=== PATIENT | male | born 1970 | race Caucasian/White ===

== ENCOUNTER 2019-05-11 18:37 | Inpatient (IN) ==
[2019-05-11] MEDS ORDERED: ASPIRIN PO ONE (18:50)
--- NOTE | 2019-05-11 19:13 | Diag Imaging Result Doc PS360 ---
EXAM: CHEST-2 VIEWS 05/11/2019 HISTORY: cp TECHNIQUE: PA and lateral chest COMMENT: There is no evidence of acute cardiac or pulmonary disease. Compared to 03/28/2016 there has been no significant change in the appearance of the chest. IMPRESSION: Stable chest. Electronically signed by Jc Yanes 05/11/2019 7:11 PM
[2019-05-11 19:20] LABS: BASO# 0.06 X1000 (0.0-0.2); BASO% 0.7 % (0.0-0.8); EOS# 0.27 X1000 (0.0-0.7); EOS% 3.3 % (0.0-10.0); HEMATOCRIT 50.6 % (42.0-52.0); HEMOGLOBIN 16.2 g/dL (14.0-18.0); LYMPH# 2.72 X1000 (1.2-3.4); LYMPH% 33.3 % (20.5-51.1); MCH 29.7 PG (27-31); MCV 92.8 FL (81-99); MONO# 0.71 X1000 (0.11-0.59); MONO% 8.7 % (1.7-9.3); MPV 10.5 FL (7.4-10.4); NEUT# 4.41 X1000 (1.4-6.5); PLT 215 X1000 (130-400); RBC 5.45 XMIL (4.7-6.1); RDW 13.1 % (11.5-14.5); WBC 8.17 X1000 (4.8-10.8)
[2019-05-11 19:27] LABS: INR 0.96; PROTIME 12.9 Seconds (11.0-16.0)
[2019-05-11 19:28] LABS: PTT 29.4 Seconds (22.3-41.8)
[2019-05-11 19:40] LABS: AGAP 9; ALB/GLOB RATIO 1.4; ALBUMIN 4.1 g/dL (3.5-5.0); ALKALINE PHOSPHATASE 108 U/L (32-122); BUN 13 mg/dL (8-22); CHLORIDE 101 mmol/L (98-107); CK PROFILE 63 U/L (24-204); COSMO 283; ESTIMATED GFR > 60; GLUCOSE 134 mg/dL (70-104); GOT 19 U/L (10-34); GPT 25 U/L (10-44); SODIUM 141 mmol/L (136-145); TCO2 31 mmol/L (25-35); TOTAL BILIRUBIN 0.37 mg/dL (0.20-1.00); TOTAL PROTEIN 7.1 g/dL (6.3-8.3)
--- NOTE | 2019-05-11 20:36 | EKG Report ---
Test Performed on : 05/11/2019 6:45:28 PM Test Reason : cp Blood Pressure : / mmHG Vent. Rate : 097 BPM Atrial Rate : 097 BPM P-R Int : 116 ms QRS Dur : 090 ms QT Int : 356 ms P-R-T Axes : 034 -21 087 degrees QTc Int : 452 ms Normal sinus rhythm. Septal infarct , age undetermined Abnormal ECG When compared with ECG of 28-MAR-2016 21:03, Septal infarct is now present Nonspecific T wave abnormality now evident in Lateral leads Unconfirmed Result
[2019-05-11] MEDS ORDERED: NICODERM PATCH TD ONE (22:31)
--- NOTE | 2019-05-11 22:31 | PROVIDER DOCUMENTATION ---
This chart was entered by Ashlyn Davidson Scribe, acting as scribe for Pj Isaac MD. HPI-Chest Pain - General Chief Complaint: Chest Pain Stated Complaint: CHEST PAIN/SOB/ARM PAIN/HISTORY OF HEART PROBLEMS Time Seen by Provider: 05/11/19 19:31 Source: patient Allergies/Adverse Reactions: Patient Allergies Allergy/AdvReac Type Severity Reaction Status Date / Time No Known Allergies Allergy Verified 06/28/16 19:47 Home Medications: Home Medication List Medication Instructions Recorded Confirmed Last Taken Type Cephalexin [Keflex] 500 mg PO Q6H 7 Days #28 cap 02/25/18 Unknown Rx Hydrocodone/APAP 7.5 mg/325 mg 1 ea PO Q6H PRN PRN #20 tab 02/25/18 Unknown Rx [[place]-7.5] Silver Sulfadiazine [Silvadene] 20 gm TP BID #1 cream..g. 02/25/18 Unknown Rx - History of Present Illness-CP Nature of Presenting Problem: pt is a 48 yr old male presenting with onset of sharp/stabbing chest pain 1 hour [employer], admits shortness of breath, no radiation, hx of [place] and stent placement Location: reports: substernal Chest Pain Radiation: reports: no radiation Quality of Pain: reports: sharp, stabbing Severity in ED: mild Onset/Duration: abrupt, 1-3 hours ago Timing: improving Context/Activities at Onset: reports: light activity Modifying Factors: improves with: nothing Associated Symptoms: reports: shortness of breath. denies: diaphoresis, nausea, vomiting Nitro Today/Relief: no nitro taken today Aspirin Treatment Today: no aspirin today Similar Symptoms Previously?: Yes Recently Seen Here or By Another Healthcare Provider: No Review of Systems - Adult - REVIEW OF SYSTEMS - ADULT Constitutional: denies: chills, fever Eyes: reports: no symptoms reported Ears, Nose, Mouth & Throat: reports: no symptoms reported Cardiovascular: reports: chest pain, orthopnea. denies: palpitations, syncope Respiratory: reports: shortness of breath. denies: cough Gastrointestinal: denies: abdominal pain, nausea, vomiting Genitourinary: reports: frequency Musculoskeletal: reports: no symptoms reported Integumentary: reports: no symptoms reported Neurological: denies: dizziness/vertigo, headache/migraines Psychiatric: reports: no symptoms reported Endocrine: reports: no symptoms reported Hematologic/Lymphatic: reports: no symptoms reported Allergic/Immunologic: reports: no symptoms reported All Other Systems: Reviewed and Negative Past History - Adult - PAST MEDICAL HISTORY-ADULT Review of Records: reports: Old Records Reviewed, Nursing Assessment Review, Medications Reviewed, Social history reviewed & non-contributory. Major Childhood Illnesses: reports: denies history Cardiovascular: reports: HTN, [place] Respiratory: reports: asthma Gastrointestinal: reports: GERD Obstetrical/Gynecological: reports: denies history Genitourinary: reports: denies history Musculoskeletal: reports: denies history Neurological: reports: denies history Psychiatric: reports: anxiety Endocrine/Immune: reports: denies history Other Conditions: reports: denies history - PRIOR SURGERIES/PROCEDURES Surgical/Procedure History: reports: cardiac stent - IMMUNIZATION STATUS Childhood Immunizations: See Nurse Assessment Flu Vaccine: See Nurse Assessment - FAMILY HISTORY Family History: reviewed, not pertinent - SOCIAL HISTORY Smoking: cigarettes Substance Use: alcohol Alcohol Use Frequency: occasionally Living Situation: family Physical Exam-General - PHYSICAL EXAM-ADULT Initial Vital Signs Reviewed: Yes - CONSTITUTIONAL General Appearance: appears well, alert, no apparent distress, obese - EYES Eyes: PERRL/EOMI - HEAD, EARS, NOSE, MOUTH & THROAT HENMT: normocephalic/atraumatic, moist mucous membranes, normal ENT inspection - NECK Neck: non-tender, full range of motion, supple, normal inspection - RESPIRATORY Respiratory: chest non-tender, lungs clear, normal breath sounds, no respiratory distress, no accessory muscle use - CARDIOVASCULAR Cardiovascular: normal peripheral pulses, regular rate, rhythm, no edema - GASTROINTESTINAL (ABDOMEN) Abdominal Exam: normal bowel sounds, non tender, soft - LYMPHATIC Lymphatic: no adenopathy - MUSCULOSKELETAL Back Exam: normal inspection, no CVA tenderness, no vertebral tenderness Extremity: normal range of motion, non-tender, normal gait, normal inspection - SKIN Integumentary: normal color, normal turgor, warm/dry - NEUROLOGIC Neurologic: grossly normal, no motor/sensory deficits - PSYCHIATRIC Psych/Mental Status: normal mood/affect - HEART Score HEART Score: History: Moderately Suspicious HEART Score: ECG: Non-Specific Repolarization Disturbance/LBBB/PM HEART Score: Age: 45-65 Years HEART Score: Risk Factors for Atherosclerotic Disease: > or = 3 Risk Factors or History of Atherosclerotic Disease HEART Score: Troponin: < or = Normal Limit Total HEART Score:: 5 Progress - PLAN OF CARE/RESULTS Progress/Plan/Lab Results: Vital Signs - 8 hr 05/11/19 18:44 Temperature 97.8 F Pulse Rate 94 H Respiratory Rate 19 Blood Pressure 191/107 O2 Sat by Pulse Oximetry 93 L Laboratory Results - last 24 hr 05/11/19 05/11/19 05/11/19 19:00 19:00 19:00 WBC RBC Hgb Hct MCV MCH MCHC RDW Std Deviation Plt Count MPV Immature Gran % (Auto) Neut % (Auto) Lymph % (Auto) [place] % (Auto) Eos % (Auto) Baso % (Auto) Immature Gran # (Auto) Neut # (Auto) Lymph # (Auto) [place] # (Auto) Eos # (Auto) Baso # (Auto) PT INR PTT (Actin FS) D-Dimer, Quantitative Sodium 141 Potassium 5.0 Chloride 101 Carbon Dioxide 31 Anion Gap 9 BUN 13 Creatinine 1.0 Estimated GFR/1.73 m2 > 60 BUN/Creatinine Ratio 13 Glucose 134 H Calculated Osmolality 283 Calcium 9.0 Total Bilirubin 0.37 AST 19 ALT 25 Alkaline Phosphatase 108 Creatine Kinase 63 Troponin T High Sens Ijf-T-Fwhcnjncfvl Pept 295 H Total Protein 7.1 Albumin 4.1 Globulin 3.0 Albumin/Globulin Ratio 1.4 Plasma Lactate 1.2 05/11/19 05/11/19 05/11/19 19:00 19:00 19:00 WBC 8.17 RBC 5.45 Hgb 16.2 Hct 50.6 MCV 92.8 MCH 29.7 MCHC 32.0 L RDW Std Deviation 13.1 Plt Count 215 MPV 10.5 H Immature Gran % (Auto) 0.0 Neut % (Auto) 54.0 Lymph % (Auto) 33.3 [place] % (Auto) 8.7 Eos % (Auto) 3.3 Baso % (Auto) 0.7 Immature Gran # (Auto) 0.00 Neut # (Auto) 4.41 Lymph # (Auto) 2.72 [place] # (Auto) 0.71 H Eos # (Auto) 0.27 Baso # (Auto) 0.06 PT 12.9 INR 0.96 PTT (Actin FS) 29.4 D-Dimer, Quantitative Sodium Potassium Chloride Carbon Dioxide Anion Gap BUN Creatinine Estimated GFR/1.73 m2 BUN/Creatinine Ratio Glucose Calculated Osmolality Calcium Total Bilirubin AST ALT Alkaline Phosphatase Creatine Kinase Troponin T High Sens 24 H Uqr-D-Hluupwvcvee Pept Total Protein Albumin Globulin Albumin/Globulin Ratio Plasma Lactate 05/11/19 05/11/19 19:00 21:50 WBC RBC Hgb Hct MCV MCH MCHC RDW Std Deviation Plt Count MPV Immature Gran % (Auto) Neut % (Auto) Lymph % (Auto) [place] % (Auto) Eos % (Auto) Baso % (Auto) Immature Gran # (Auto) Neut # (Auto) Lymph # (Auto) [place] # (Auto) Eos # (Auto) Baso # (Auto) PT INR PTT (Actin FS) D-Dimer, Quantitative 0.31 Sodium Potassium Chloride Carbon Dioxide Anion Gap BUN Creatinine Estimated GFR/1.73 m2 BUN/Creatinine Ratio Glucose Calculated Osmolality Calcium Total Bilirubin AST ALT Alkaline Phosphatase Creatine Kinase Troponin T High Sens Kts-B-Pezfohcrrsj Pept Total Protein Albumin Globulin Albumin/Globulin Ratio Plasma Lactate 0.8 Orders Category Date Time Status Cardiac Monitoring DIRECTED Care 05/11/19 18:50 Active NEWS Score 2-4:Order NEWS Lactate Series NOW Care 05/11/19 18:48 Active Oxygen Therapy- ED Nursing DIRECTED Care 05/11/19 18:50 Active Saline Loc NOW Care 05/11/19 18:50 Active CHEST-2 VIEWS [RAD] Stat Exams 05/11/19 18:50 Completed CBC WITH ELECTRONIC DIFF [HEME] Stat Lab 05/11/19 19:00 Completed CK PROFILE [SP CHEM] Stat Lab 05/11/19 19:00 Completed COMPREHENSIVE METABOLIC PANEL [CHEM] Stat Lab 05/11/19 19:00 Completed D-DIMER [COAG] Stat Lab 05/11/19 19:00 Completed LACTATE, PLASMA [CHEM] Lab 05/11/19 21:50 Completed LACTATE, PLASMA [CHEM] Lab 05/12/19 01:00 Uncollected LACTATE, PLASMA [CHEM] Q3H Lab 05/11/19 19:00 Completed PRO B-NATRIURETIC PEPTIDE Stat Lab 05/11/19 19:00 Completed PROTIME WITH INR [COAG] Stat Lab 05/11/19 19:00 Completed PTT [COAG] Stat Lab 05/11/19 19:00 Completed TROPONIN T HIGH SENSITIVITY Stat Lab 05/11/19 19:00 Completed Aspirin Med 05/11/19 18:50 Discontinued 325 mg PO NOW ONE CP/SOB/Palp >45 yrs of Age Stat Oth 05/11/19 18:50 Ordered EKG [EKG] Stat Ther 05/11/19 18:50 Draft Result Diagrams: 05/11/19 19:00 05/11/19 19:00 - EKG 1 Time of EKG reading by physician:: 19:13 EKG Read and Signed by:: Pj Isaac EKG Interpretation (*Must complete 3 of following elements*): Abnormal (septal infarct-age undetermined) Rate: 97 Rhythm: nsr [place]: normal QRS: normal [place] Interval: normal - XRAY 1 XRAY Study: Chest Impression: Normal ( Signed EXAM: CHEST-2 VIEWS 05/11/2019 HISTORY: cp TECHNIQUE: PA and lateral chest COMMENT: There is no evidence of acute cardiac or pulmonary disease. Compared to 03/28/2016 there has been no significant change in the appearance of the chest. IMPRESSION: Stable chest. Electronically signed by Jc Yanes 05/11/2019 7:11 PM 05/11/19 191) - CONSULTS/PCP/HOSPITALIST Notification #1 *Consult/PCP/Hospitalist*: Dr Arauz Time Discussed: 22:20 Reason/Comments: discussed plan of care for pt admit Consult Disposition: Admit Departure - Departure Date of Disposition Decision: 05/11/19 Time of Disposition Decision: 22:22 DIAGNOSIS: Dependent edema, Smoker Chest pain Qualifiers: Chest pain type: unspecified Qualified Code(s): R07.9 - Chest pain, unspecified CAD (coronary artery disease) Qualifiers: Coronary Disease-Associated Artery/Lesion type: unspecified vessel or lesion type [place] vs. transplanted heart: [place] heart Associated angina: with unspecified angina Qualified Code(s): I25.119 - Atherosclerotic heart disease of [place] coronary artery with unspecified angina pectoris Disposition: ADMITTED INPATIENT 09 Certified Medical Emergency: Emergent Condition: Stable Referrals and Follow-Ups: None,PCP [Primary Care Provider] - - Critical Care Note This patient required my direct & personal management of CC.: No Attestation - Physician/ VERONA Attestation Patient care was provided by Advanced Practice Provider:: No The physician spent face to face time with patient:: Yes Advanced Practice Provider documentation review:: Supervising physician onsite and consulted in the evaluation and care of this patient. The physician did have a face to face encounter with the patient. This chart was documented by the indicated scribe, (Ashlyn Davidson, [employer]) and accurately reflects the services I performed and decisions made by me, Pj Isaac MD, as attested by the provider's signature.
[2019-05-11] MEDS ORDERED: ZOFRAN IV PRN (23:43)
[2019-05-11] MEDS ORDERED: TYLENOL PO PRN (23:43)
[2019-05-11] MEDS ORDERED: NITROGLYCERIN SL PRN (23:43)
[2019-05-12] MEDS ORDERED: LABETALOL IV ONE (00:17)
[2019-05-12] MEDS: LOVENOX SUBQ SCH ×2 (00:23→23:18)
[2019-05-12] MEDS ORDERED: LIPITOR PO ONE (01:04)
--- NOTE | 2019-05-12 01:59 | HISTORY AND PHYSICAL ---
CHIEF COMPLAINT: Chest pain. HPI: Mr. Pulliam is a 48-year-old male who comes into the emergency room with complaint of chest pain. Has a history of coronary artery disease, myocardial infarction x2, and cardiac stenting, hypertension, hyperlipidemia. He has not been compliant with his medications related to cough. He does not take any home medications at this time. Stated that the chest pain started around 4 p.m. today. It was a sharp, stabbing pain. Did not radiate. He did have shortness of breath with a lot of activity, and nothing made it better. His cardiac enzymes were unremarkable. His high-sensitivity troponin was 24, but related to his history of coronary artery disease he will be admitted in observation status. PAST MEDICAL HISTORY: See HPI. PREVIOUS SURGICAL HISTORY: Nasal surgery and cardiac stenting. FAMILY HISTORY: Positive for coronary artery disease and diabetes mellitus. 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 No drugs. Very rare alcohol. Smokes 1 pack of cigarettes per day. ALLERGIES: NO KNOWN DRUG ALLERGIES. HOME MEDICATIONS: No home medications. REVIEW OF SYSTEMS: A 14 point review of systems was conducted with the patient. Pertinent positives listed above in the HPI. All other systems reviewed and found to be negative. PHYSICAL EXAMINATION: VITAL SIGNS: Temperature 97.8, pulse 80, respirations 18, blood pressure 180/138, oxygen saturation 95% on 2L nasal cannula. GENERAL: Pleasant 48-year-old male lying on the ER stretcher. He is alert and oriented x3. Is in no acute distress. HEENT: Head is atraumatic, normocephalic. Pupils are equal, round, react to light. Extraocular eye movements intact. Sclera anicteric. Conjunctiva is pink. Oral mucosa is moist. NECK: Supple. No JVD. No thyromegaly. Trachea is midline. No cervical lymphadenopathy. CARDIAC: S1, S2 appreciated. No murmurs, gallops, rubs. LUNGS: Clear to auscultation bilaterally, with no rhonchi, wheezes, rales. Symmetric rise and fall of respirations. ABDOMEN: Soft, nondistended, nontender. Bowel sounds present all 4 quadrants. Normoactive. No pulsatile mass or organomegaly. EXTREMITIES: No clubbing, cyanosis or edema, 2+ pedal pulses bilaterally. GENITOURINARY: No bladder distention. Patient voids, otherwise deferred. NEUROLOGICAL: Alert and oriented x3. No focal motor deficits. Otherwise nonfocal examination. DIAGNOSTIC DATA: PA and lateral chest x-ray no acute disease. EKG normal sinus rhythm, rate of 97, nonspecific T-wave abnormality in lateral leads. LABORATORY DATA: CBC, coags, D-dimer and chemistry panel within normal limits other than a glucose of 134. Troponin is 24. ASSESSMENT: 1. Chest pain, rule out acute myocardial infarction. 2. Hypertension, untreated. 3. Hyperlipidemia. 4. Coronary artery disease with past history of myocardial infarction. PLAN: Admit patient to the medical floor. Consult Cardiology. Schedule stress test tomorrow. Will place a NicoDerm on the patient, start atorvastatin 40 mg p.o. daily, nitroglycerin as needed for chest pain, aspirin 81 mg daily. Will give labetalol p.r.n. At this time for hypertension the patient will need started on a daily regimen to be discharged on. Further recommendations based on patient's clinical course. Dictated by KRISTINE Zheng for Austin Arauz MD cc: KRISTINE Zheng MD [facility]
[2019-05-12] MEDS: PRILOSEC PO SCH (06:09)
[2019-05-12] MEDS: ASPIRIN PO SCH (08:17)
--- NOTE | 2019-05-12 08:27 | EKG Report ---
Test Performed on : 05/12/2019 06:11:12 AM Test Reason : cp Blood Pressure : / mmHG Vent. Rate : 083 BPM Atrial Rate : 083 BPM P-R Int : 138 ms QRS Dur : 086 ms QT Int : 366 ms P-R-T Axes : 036 -33 032 degrees QTc Int : 430 ms Normal sinus rhythm. Left axis deviation Septal infarct (cited on or before 11-MAY-2019) Inferior infarct , age undetermined Abnormal ECG When compared with ECG of 11-MAY-2019 18:45, (Unconfirmed) No significant change was found Confirmed by Johnathan Mancilla MD ([id number]) on 05/12/2019 7:28:42 PM
[2019-05-12] MEDS: LASIX IV SCH ×2 (11:15→20:39)
[2019-05-12] MEDS: CAPOTEN PO SCH ×3 (11:15→20:39)
--- NOTE | 2019-05-12 14:59 | PROGRESS NOTE ---
DATE: 05/12/2019 SUBJECTIVE: The patient has been evaluated by Cardiology Department. It looks like this patient will have a stress test done tomorrow. He has been placed n.p.o. after midnight. Cardiac enzymes are negative. PHYSICAL EXAMINATION: Vital Signs: Temperature 98.6 degrees, pulse 79, respiratory rate 24, blood pressure 143/83, oxygen saturation 96 on 2 L of nasal cannula. HEENT: Head normocephalic, no trauma. PERRLA. Neck: Neck is supple. No JVD. No masses. Central trachea. Chest: Clear to auscultation. No wheezing. No rales. Abdomen: Soft, nontender, nondistended. No hepatosplenomegaly. Extremities: No edema, no clubbing, no cyanosis. Neurological examination: The patient is awake. He is oriented x3. No focal deficits. LABORATORY: No lab work done today. Hemoglobin A1c is 6 and high sensitive troponins 20, triglyceride 130, cholesterol 132, LDL 99, HDL 24. Plasma lactate negative x3. ASSESSMENT AND PLAN: 1. Chest pain. This patient will have a stress test done tomorrow. Cardiology Department following this patient pending echocardiogram. 2. Hypertension. Continue with same management for now. 3. Hyperlipidemia. This patient has been placed on statin. 4. History of coronary artery disease with apparently myocardial infarction before, aware. cc: Gregory Fisher MD
--- NOTE | 2019-05-12 15:20 | CARDIOLOGY CONSULTATION ---
DATE: 05/12/2019 REASON FOR CONSULTATION: Chest discomfort, shortness of breath, edema. HISTORY: Mr. Regan is a 48-year-old male who carries a history of coronary heart disease. Apparently, the patient has not been under any kind of medical care for the past 3 years. He presented to the emergency room last night complaining of several weeks of not feeling well with some nonexertional chest discomfort that he describes as sharp, very short lasting, as well as progressive exertional dyspnea from moderate effort to mild effort lately associated with swelling of his lower extremities. On the day of admission, he had a bad episode of sharp chest discomfort that lasted longer than usual and at that time, he got scared and decided to come in. They did a chest x-ray that shows no infiltrates. A 12-lead electrocardiogram done in the emergency room showed sinus rhythm with septal scar and nonspecific T-wave changes in the lateral leads with the left anterior fascicular block. High sensitivity troponins have been checked. The first was 123 ng/L. The second was 24 ng/mL; those 2 were done yesterday. The one from today at 11:55 a.m. is 20 ng/L. Those are slightly elevated. ProBNP level is 295 pg/mL. The patient was given some initial medications including aspirin, labetalol for high blood pressure, and he is feeling somewhat better at this time. He is not having any more chest pain. Subsequent EKG shows again stable pattern at 6:11 a.m. with no acute ischemic changes. The T-wave abnormality in the limb leads 1 and aVL is less significant. PAST HISTORY: Positive for an acute myocardial infarction that took place in 2014. At that time, he was taken to [facility]. Dr. Sosa performed a heart catheterization finding a total occlusion of right coronary artery as well as lesions in the circumflex and the LAD. He proceeded to perform thrombectomy and stenting of the right coronary artery with a subtotal occlusion due to thrombosis of one large acute marginal branch. Unfortunately, the [place] and did not follow up with the [facility]. The patient has hypertension, hyperlipidemia. He has some COPD. SURGICAL HISTORY: He has had nasal surgery. SOCIAL HISTORY: He is single. 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 He has been a smoker of a pack of cigarettes a day for over 20 years. Not a drinker. He is . He has 2 daughters here in town. FAMILY HISTORY: His father had coronary disease. ALLERGIES: Negative. REVIEW OF SYSTEMS: Besides what I have described is noncontributory. HOME MEDICATIONS: Basically he was not taking any medication all. PHYSICAL EXAMINATION: Vital signs: Blood pressure 149/105, temperature 97.4 degrees, pulse 85, respirations 19. General: He is awake in no distress. HEENT: Normal. Chest: Sounds clear to auscultation and percussion. Heart: Sounds are regular rhythmic. I do not hear a gallop or murmur. Abdomen: Nontender. Extremities: Showed no edema. Neurological: Nonfocal. Moves 4 extremities. BLOOD WORK: Sodium 141, potassium 4.0, BUN 13, creatinine 1.0. Cholesterol 132, LDL 99, HDL 24, triglycerides 130. IMPRESSION: 1. Patient who presents with increasing dyspnea, swelling of the legs consistent with systolic heart failure. He has suffered a prior extensive inferior wall myocardial infarction in 2014. This was successfully treated with a stent.Question of recurrent GA. Question of CHF systolic,acute on chronic. 2. Angina pectoris functional class 3. The patient has been diagnosed with coronary heart disease. However, unfortunately, this is untreated. Patient has severe Atherosclerotic heart disease. 3. Medical noncompliance. 4. Tobacco user. 5. Obesity. BMI is 35.6. 6. Hyperlipidemia. His LDL cholesterol is 99, HDL is 24. RECOMMENDATIONS: We will go ahead and resume all of his medications including CARMEN inhibitors, low- dose aspirin, statins. I will get an echocardiogram and a myocardial perfusion stress test for further evaluation. Depending on the results, we will decide as to whether or not we treat him conservatively for a few months and then pursue invasive evaluation or we go ahead and obtain a heart catheterization on him. My personal preference will be to treat him medically for the time being because he has been not taking any medication at all for over 2 to 3 years. Further advice will be forthcoming. Thank you for the opportunity to participate in his evaluation. cc: MD IGLESIA Aggarwal
[2019-05-12] MEDS ORDERED: FLU VACCINE IM ONE (15:43)
[2019-05-13] MEDS: PRILOSEC PO SCH ×2 (05:43→07:25)
[2019-05-13] MEDS: CAPOTEN PO SCH ×4 (05:43→20:57)
--- NOTE | 2019-05-13 08:21 | EKG Report ---
Test Performed on : 05/13/2019 07:44:11 AM Test Reason : chest pain Blood Pressure : / mmHG Vent. Rate : 087 BPM Atrial Rate : 087 BPM P-R Int : 126 ms QRS Dur : 086 ms QT Int : 352 ms P-R-T Axes : 045 -40 087 degrees QTc Int : 423 ms Normal sinus rhythm. Left axis deviation Nonspecific T wave abnormality Abnormal ECG When compared with ECG of 12-MAY-2019 06:11, Criteria for Inferior infarct are no longer present Nonspecific T wave abnormality is new. Confirmed by Johnathan Mancilla MD ([id number]) on 05/13/2019 8:22:19 PM
[2019-05-13] MEDS ORDERED: LEXISCAN ONE (08:24)
[2019-05-13 08:27] LABS: AGAP 9; BUN 16 mg/dL (8-22); CALCIUM 9.5 mg/dL (8.8-10.2); CHLORIDE 95 mmol/L (98-107); CK PROFILE 62 U/L (24-204); COSMO 278; CREATININE 0.9 mg/dL (0.7-1.2); ESTIMATED GFR > 60; GLUCOSE 110 mg/dL (70-104); POTASSIUM 4.3 mmol/L (3.5-5.1); SODIUM 138 mmol/L (136-145); TCO2 34 mmol/L (25-35)
--- NOTE | 2019-05-13 09:10 | ECHO REPORT ---
ORDER DATE: 05/12/2019 MEASUREMENTS: Septal thickness 1.9, left ventricular internal diameter in diastole 3.7, posterior wall thickness 1.8, left ventricular internal diameter in systole 2.4, aortic root 3.5, left atrium 3.5. SUMMARY: 1. Technically difficult study due to limited acoustic window quality. Intravenous echo contrast agent, Optison, was utilized to enhance endocardial definition. 2. Aortic valve is trileaflet and opens normally on 2-dimensional images. The peak gradient across the aortic valve is less than 10 mmHg. Mitral and tricuspid valves are without evidence of structural abnormality, while pulmonic valve is not well demonstrated. There is mild mitral regurgitation and trace tricuspid regurgitation. The aortic root is normal in size. 3. Normal left ventricular chamber size with bcvguhzu-wu-hnodjs concentric left ventricular hypertrophy is suggested. The estimated left ventricular ejection fraction appears to be at least 65%. No regional wall motion abnormality can be appreciated. Doppler suggests grade 1 left ventricular diastolic dysfunction. Left atrium, right atrium, and right ventricle are grossly normal in size with grossly preserved right ventricular systolic function. 4. No pericardial effusion. 5. Appearance of inferior vena cava suggests normal central venous pressure. CONCLUSIONS: 1. Technically difficult study. 2. Mild mitral regurgitation. 3. Ygujwzib-uq-bjwxpd concentric left ventricular hypertrophy with estimated left ventricular ejection fraction at least 65%. 4. Grade 1 left ventricular diastolic dysfunction suggested. cc: MD Gregory Rendon MD
[2019-05-13] MEDS: LASIX IV SCH ×2 (11:36→20:57)
[2019-05-13] MEDS: ASPIRIN PO SCH (11:36)
--- NOTE | 2019-05-13 14:53 | PROGRESS NOTE ---
DATE: 05/13/2019 SUBJECTIVE: The patient seems to be feeling a little bit better compared with yesterday. No chest pain, but he had some shortness of breath during the stress test. Pending results at this moment. I will follow the recommendations of Cardiology Department. Cardiac enzymes are negative, but he has a previous history of [place] with stenting. OBJECTIVE: Vital Signs: Temperature 98 degrees, pulse 98, respiratory rate 21, blood pressure 158/96, oxygen saturation 91% on 2 L of nasal cannula. HEENT: Head normocephalic. No trauma. PERRLA. Neck: Supple. No JVD. No masses. Central trachea. Chest: Clear to auscultation. No wheezing. Some crepitus at the bases. Abdomen: Soft, nontender, nondistended. No hepatosplenomegaly. Extremities: No edema, no clubbing, no cyanosis. Neurological: The patient is awake, alert. He is oriented x3. No focal deficits. LABORATORY DATA: Sodium 138, potassium 4.3, chloride 95, bicarbonate 34, BUN 16, creatinine 0.9, glucose 110, calcium 9.5. Magnesium 2. ASSESSMENT AND PLAN: 1. Chest pain. He just had a stress test done today. Cardiology Department on board. I will follow their recommendations. He seems to be stable. He had some shortness of breath during the during the procedure. 2. Hypertension, stable. Continue with the same management for now. 3. Hyperlipidemia. This patient has been placed on statins. 4. History of coronary artery disease with previous myocardial infarction and stenting. Aware. 5. Tobacco abuse. This patient has been highly advised against tobacco use. I will continue with daily cessation education. We talked about smoking cessation for at least 10 minutes. cc: Gregory Fisher MD
--- NOTE | 2019-05-13 15:28 | Diag Imaging Result Document ---
PROCEDURE NAME: MYOCARDIAL PERF SCAN, STR/REST - 05/13/2019 STUDY: Rest/stress walking Lexiscan myocardial perfusion stress test. INDICATION: Patient with coronary heart disease, previous myocardial infarction, previous stent, medical noncompliance, and recurrent angina. DESCRIPTION: The patient came into the nuclear lab and received a rest injection of technetium 99m sestamibi 16.1 mCi. Multiple tomographic views of the cardiac structures were obtained at rest. Subsequently, the patient underwent a walking Lexiscan protocol. Lexiscan 0.4 mg was infused. At peak infusion he was injected with technetium 99m sestamibi 45.8 mCi. Multiple tomographic views of the cardiac structures were obtained following the exercise protocol. SUMMARY OF THE ELECTROCARDIOGRAPHIC PORTION OF THE STUDY: Resting ECG shows sinus rhythm. Rate is 84 beats per minute. Resting blood pressure 162/94. During the protocol the patient experienced mild dyspnea. The heart rate increased to a maximum of 122 beats per minute. Peak exercise ECG shows sinus tachycardia without any ischemic ST changes. Peak blood pressure was 194/98. Following the completion of the test, the heart rate and blood pressure returned back to their baseline. In summary, the electrocardiographic response to the walking Lexiscan protocol appears to be negative for ischemia. SUMMARY OF THE MYOCARDIAL PERFUSION PORTION OF THE STUDY: Poststress tomographic views of the left ventricle showed a moderately extensive, mild to moderate in severity inferior wall defect. This spans the entire inferior wall. In addition, there is a lateral wall defect of moderate severity. The rest images suggest a minimal degree of reversibility in the mid inferior wall and also at the basal inferolateral segment. This is really very subtle. Polar plots revealed the same. Mostly fixed inferior wall defect of mild to moderate severity with questionable periscar ischemia in the basal aspect of the defect and also in the mid section of it. There is a lateral wall scar of moderate severity. The gated SPECT shows low preserved ejection fraction, using the [employer] protocol ejection fraction 49%. Using the Myometrix protocol is 54%. Ventricular volumes are increased. End diastolic volume 229 mL and uemmvldw01 mL. The lung/heart ratio is 0.41. The TID is 0.79. CONCLUSION: In summary, this study shows: 1. Unremarkable electrocardiographic response to a walking Lexiscan protocol. The patient achieved 70% of maximum predicted heart rate for his age and complained of mild dyspnea. 2. Abnormal poststress myocardial perfusion scan. There is scintigraphic suggestion of inferior wall scar with questionable periscar ischemia of mild degree. The scar spans the entire inferior wall and the basal lateral wall. 3. Preserved global left ventricular systolic function with ejection fraction in the range of 49% to 54% with no definite wall motion abnormality. 4. The chamber is dilated. Clinical correlation is recommended. cc: MD Medina Aggarwal PA MTDD
[2019-05-13] MEDS: LIPITOR PO SCH (20:57)
[2019-05-14] MEDS: LOVENOX SUBQ SCH ×2 (00:14→22:19)
[2019-05-14] MEDS: PRILOSEC PO SCH ×2 (05:57→06:50)
[2019-05-14] MEDS: CAPOTEN PO SCH (05:57)
[2019-05-14 08:07] LABS: AGAP 12; BUN 25 mg/dL (8-22); CALCIUM 9.6 mg/dL (8.8-10.2); CHLORIDE 96 mmol/L (98-107); COSMO 281; ESTIMATED GFR > 60; GLUCOSE 123 mg/dL (70-104); POTASSIUM 4.2 mmol/L (3.5-5.1); SODIUM 138 mmol/L (136-145); TCO2 30 mmol/L (25-35)
--- NOTE | 2019-05-14 08:15 | CARDIOLOGY PROGRESS NOTE ---
DATE: 05/14/2019 CHIEF COMPLAINT: Shortness of breath, chest discomfort. SUBJECTIVE: Mr. Pulliam is doing better. He finished his testing yesterday. His echocardiogram from 05/11 showed normal left ventricular ejection fraction, moderate concentric LVH. No significant valvular abnormality was identified. The nuclear stress test that was done yesterday using the walking Lexiscan protocol showed that he has inferior wall scar with questionable terry-scar ischemia with reasonably preserved ejection fraction. OBJECTIVE: Vital signs: Blood pressure 115/73, temperature 97.9, pulse 94, respirations 16. General: The patient says that he has not had any sustained episode of chest discomfort other than short-lasting very sharp discomfort, very atypical. His breathing is also better, however, he feels like he still needs the oxygen. HEENT: Normal. Chest: Clear to auscultation. Heart: Sounds regular and rhythmic, distant. Abdomen: Nontender. Extremities: Showed no edema. Neurologic exam: Follows commands, moves all 4 extremities. BLOOD WORK: From yesterday, sodium 138, potassium 4.3, BUN 16, creatinine 0.9. IMPRESSION: 1. Patient who presented with symptoms of systolic heart failure. His current testing indicates that actually he actually has diastolic heart failure. His ejection fraction is well-preserved. 2. Angina pectoris functional class III. He does have severe coronary heart disease and he had been noncompliant with the therapy. At this time, his stress test shows only a minor abnormality. 3. Medical noncompliance. 4. Tobacco user. 5. Hyperlipidemia. RECOMMENDATIONS: At this time, my advice to him is to follow strictly the regimen that we are going to outline during this admission including CARMEN inhibitors, beta-blockers, statin therapy, low-dose aspirin, and diuretics as needed. We will reassess him at the office in a couple of weeks. I would probably like to watch him over the weekend just to make sure that he is stable. If his situation changes, then we may have to proceed with urgent catheterization. The patient understands and agrees. cc: Jagjit Moss MD [facility]PITALMilana
[2019-05-14] MEDS: COREG PO SCH ×2 (08:36→22:18)
[2019-05-14] MEDS: ASPIRIN PO SCH (08:36)
[2019-05-14] MEDS: VASOTEC PO SCH ×2 (08:37→22:18)
[2019-05-14] MEDS: LASIX IV SCH ×2 (08:37→22:18)
--- NOTE | 2019-05-14 17:00 | PROGRESS NOTE ---
DATE: 05/14/2019 SUBJECTIVE: The patient is not complaining of chest pain or shortness of breath. He is complaining of some headache. No acute events overnight. Cardiology department on board. OBJECTIVE: Vital Signs: Temperature 98.3 degrees, pulse 84, respiratory rate 16, blood pressure 99/65, oxygen saturation 97% on room air. HEENT: Head normocephalic. No trauma. PERRLA. Neck: Supple. No JVD. No masses. Central trachea. Chest: Clear to auscultation. No wheezing. Some crepitus at the bases. Abdomen: Soft, nontender, nondistended. No hepatosplenomegaly. Extremities: No edema, no clubbing, no cyanosis. Neurological: The patient is awake and alert. He is oriented x3. No focal deficits. LABORATORY: Sodium 138, potassium 4.2, chloride 96, bicarbonate 30, BUN 25, creatinine 1, glucose 25, calcium 9.6. Hemoglobin A1c 6. ASSESSMENT AND PLAN: 1. Chest pain in a patient with a history of coronary artery disease. It looks like he has severe coronary artery disease and he has not been taking his medications as prescribed. Apparently his stress test showed a minor abnormality. We are going to continue with same management but we will keep this patient during the weekend to see how he does. Cardiology on board. 2. Diastolic heart failure. Continue with same management. 3. Medical noncompliance, aware. 4. Tobacco abuse. This patient has been highly advised against tobacco use. I will continue with daily cessation education. 5. Hyperlipidemia. Continue with statins. 6. Prediabetes. Hemoglobin A1c 6. We had a large conversation about diabetes, diet and exercise. cc: Gregory Fisher MD
[2019-05-14] MEDS: LIPITOR PO SCH (22:18)
[2019-05-15] MEDS: LOVENOX SUBQ SCH (02:15)
[2019-05-15] MEDS: PRILOSEC PO SCH (06:23)
[2019-05-15] MEDS: VASOTEC PO SCH ×2 (08:59→21:40)
[2019-05-15] MEDS: LASIX IV SCH ×2 (08:59→21:41)
[2019-05-15] MEDS: ASPIRIN PO SCH (08:59)
[2019-05-15] MEDS: COREG PO SCH ×2 (09:00→21:38)
--- NOTE | 2019-05-15 12:18 | PROGRESS NOTE ---
DATE: 05/15/2019 SUBJECTIVE: The patient is not complaining of chest pain or shortness of breath. No acute events overnight. OBJECTIVE: Vital Signs: Temperature 98.2 degrees, pulse 77, respiratory rate 21, blood pressure 104/62, oxygen saturation 98 on 2 L of nasal cannula. HEENT: Head normocephalic, no trauma, PERRLA. Neck: Supple. No JVD. No masses. Central trachea. Chest: Clear to auscultation. No wheezing. Some crepitus at the bases scattered. Abdomen: Soft. Extremities: No edema, no clubbing, no cyanosis. Neurological: Awake, alert, he is oriented x3. No focal deficits. LABORATORY: No lab work done today. ASSESSMENT AND PLAN: 1. Chest pain in a patient with a history of coronary artery disease, it looks like he has a severe coronary artery disease and he has not been taking his medications as prescribed. A stress test showed a minor abnormality. Cardiology department has requested to keep the patient during the weekend to keep an eye on him and continue with the same medications right now. 2. Diastolic heart failure. Continue with the same management. 3. Medical noncompliance, aware. 4. Tobacco abuse. This patient has been advised against tobacco use, and I will continue with daily cessation education. 5. Hyperlipidemia, continue with statins. 6. Pre diabetes. Hemoglobin A1c is 6. We had a large conversation yesterday about diabetes, and we discussed today also a little bit about it. cc: Gregory Fisher MD
[2019-05-15] MEDS: LIPITOR PO SCH (21:40)
[2019-05-16] MEDS: PRILOSEC PO SCH (06:11)
[2019-05-16] MEDS: LOVENOX SUBQ SCH (06:12)
[2019-05-16] MEDS: COREG PO SCH ×2 (08:52→21:15)
[2019-05-16] MEDS: VASOTEC PO SCH ×2 (08:52→21:14)
[2019-05-16] MEDS: ASPIRIN PO SCH (08:52)
[2019-05-16] MEDS: LASIX IV SCH ×2 (08:53→21:15)
--- NOTE | 2019-05-16 13:41 | PROGRESS NOTE ---
DATE: 05/16/2019 SUBJECTIVE: No acute events overnight. OBJECTIVE: Vital Signs: Temperature 98.3 degrees, pulse 80, respiratory rate 20, blood pressure 104/65, oxygen saturation 98 on 2 L of nasal cannula. HEENT: Head normocephalic. No trauma. PERRLA. Neck: Supple. No JVD. No masses. Central trachea. Chest: Clear to auscultation. No wheezing. No rales. Some crepitus at the bases. Abdomen: Soft, nontender, nondistended. No hepatosplenomegaly. Extremities: No edema, no clubbing, no cyanosis. Neurological: The patient is awake, alert. He is oriented x3. No focal deficits. LABORATORY DATA: No lab work done today. ASSESSMENT AND PLAN: 1. Chest pain in a patient with a history of coronary artery disease. It looks like he has severe coronary artery disease, and he has not been taking his medications as prescribed. Cardiology Department requested to keep the patient during the weekend to keep an eye on him. He has had a stress test done that showed a minor abnormality. 2. Diastolic heart failure. Continue with the same management. 3. Medical noncompliance. Aware. 4. Tobacco abuse. This patient has been highly advised against tobacco use. I will continue with daily cessation education. 5. Hyperlipidemia. Continue with statins. 6. Prediabetes with a hemoglobin A1c of 6. 7. Likely sleep apnea. He will need to do a sleep study as an outpatient. This has been explained in detail to the patient. cc: Gregory Fisher MD
[2019-05-16] MEDS: LIPITOR PO SCH (21:12)
[2019-05-17] MEDS: LOVENOX SUBQ SCH (05:30)
[2019-05-17] MEDS: PRILOSEC PO SCH ×2 (05:30→07:35)
[2019-05-17 07:09] LABS: AGAP 7; BUN 29 mg/dL (8-22); CALCIUM 9.1 mg/dL (8.8-10.2); CHLORIDE 97 mmol/L (98-107); COSMO 279; CREATININE 1.2 mg/dL (0.7-1.2); ESTIMATED GFR > 60; GLUCOSE 118 mg/dL (70-104); POTASSIUM 5.3 mmol/L (3.5-5.1); SODIUM 136 mmol/L (136-145); TCO2 32 mmol/L (25-35)
[2019-05-17] MEDS: LASIX IV SCH (09:36)
[2019-05-17] MEDS: ASPIRIN PO SCH (09:37)
[2019-05-17] MEDS: COREG PO SCH (09:39)
[2019-05-17] MEDS: VASOTEC PO SCH (09:39)
[2019-05-17 11:38] VITALS: BP 101/65
--- NOTE | 2019-05-17 14:03 | CARDIOLOGY PROGRESS NOTE ---
DATE: 05/17/2019 CHIEF COMPLAINT: Shortness of breath, chest discomfort. SUBJECTIVE: Mr. Pulliam is feeling tired. He says that his breathing is better. He is not having any chest pain. No swelling. OBJECTIVE: Blood pressure is 101/65, temperature 97.8, pulse 73, respirations 17. He is awake, alert, oriented, in no distress. HEENT is unremarkable. Chest sounds clear to auscultation and percussion. Heart sounds regular and rhythmic. No gallop or murmur. His abdomen is nontender. Extremities showed no edema. Neurologic: Follows commands, moves all 4 extremities. DIAGNOSTIC DATA: Blood work shows sodium 136, potassium 5.3, BUN is 29, creatinine 1.2. IMPRESSION: 1. The patient presented with shortness of breath consistent with systolic and diastolic heart failure. Ultimately, his imaging studies showed that this ejection fraction is normal. 2. Angina pectoris, functional class 3. This has improved with medical therapy here. 3. Tobacco user. 4. Hyperlipidemia. 5. Medical noncompliance. RECOMMENDATIONS: At this time, he is encouraged to continue present medical therapy. He will increase his fluid intake. We will see how he does overnight, and tomorrow I think he could go home if his basic metabolic profile is adequate. The hyperkalemia may be spurious; however, if it is persistent, we may have to back off or back down on the beta rafia which is more likely to lead to hyperkalemia as well as the CARMEN inhibitor. cc: Jagjit Moss MD
[2019-05-17] MEDS ORDERED: FLU VACCINE IM ONE (14:14)
--- NOTE | 2019-05-17 18:46 | DISCHARGE SUMMARY ---
ADMISSION DATE: 05/11/2019 DISCHARGE DATE: 05/17/2019 DISCHARGE DIAGNOSES: 1. Chest pain in a patient with history of coronary artery disease. 2. Diastolic heart failure exacerbation. 3. Medical noncompliance. 4. Tobacco abuse. 5. Hyperlipidemia. 6. Prediabetes with a hemoglobin A1c of 6. 7. Sleep apnea. PROCEDURES PERFORMED: 1. Chest x-ray dated 05/11/2019, impression: Stable chest. 2. Echocardiogram dated 05/12/2019, conclusion: Moderate to severe concentric left ventricular hypertrophy with estimated left ventricular ejection fraction at least 65%, grade 1 left ventricular diastolic dysfunction suggested. 3. Stress test dated 05/13/2019, conclusion: Unremarkable electrocardiographic response to a walking Lexiscan protocol, abnormal post-stress myocardial perfusion scan. There is a suggestion of inferior wall scar with questionable terry-scar ischemia of mild degree, the scar spanned the entire inferior wall and the basal lateral wall. Preserved global left ventricular systolic function with ejection fraction in the range of 49% to 54.6% with no definite wall motion abnormality, the chamber is dilated. HOSPITAL COURSE: 48-year-old male with a past medical history of coronary artery disease, PR x2, cardiac stenting, hypertension, hyperlipidemia, sleep apnea, medical noncompliance, admitted on 05/11/2019. He presented with shortness of he presented with chest pain that started around 4 p.m. on the day of admission. It was sharp, stabbing pain, did not radiate. He was complaining of some shortness of breath with activity and nothing made it better. Cardiac enzymes were fine. He was evaluated by Cardiology Department, given his medical history. We did a stress test that showed a minor lesion and echocardiogram showed a normal ejection fraction but likely a diastolic dysfunction. The patient's blood pressure was better controlled and actually upon admission was in the 180s to 190s. At the end, it was in the 110s and 100s. We had multiple conversations about tobacco abuse, it looks like he is a heavy smoker. On the other hand, we checked for a hemoglobin A1c and it was 6, so this patient also has prediabetes, and I explained to him the whole situation. The patient was followed closely by Cardiology department. He did well with the medications that he has been on during this hospitalization. Also we noticed that this patient may have sleep apnea, but we do not have any documented sleep study, so I will refer this patient not only to a strand and binder controller, but sleep doctor to take care of this. I do believe he has a superimposed COPD, the patient seems to be stable today. He is tolerating p.o. He is complaining of some shortness of breath mostly with physical activity, he will follow up with the Cardiology Department as an outpatient and actually he has an appointment with Dr. Moss on 06/14/2019. Also, he has an appointment with Dr. Easton, who is a strand and binder controller and a sleep doctor on 05/25/2019 at 1:30 p.m. This has been explained to the patient and the patient agree with that. PHYSICAL EXAMINATION: Vital Signs: Temperature 97.8 degrees, pulse 76, respiratory rate 17, blood pressure 101/65 oxygen saturation 92 on room air. HEENT: Head normocephalic. No trauma. PERRLA. Neck: Supple. No JVD. No masses. Central trachea. Chest: Clear to auscultation. No wheezing. No rales. Some crepitus at the bases. Abdomen: Soft, nontender, nondistended. No hepatosplenomegaly. Extremities: No edema. No clubbing, no cyanosis. Neurologic: The patient is awake, alert. She is oriented x3. No focal deficits. LABORATORY: Sodium 136, potassium 5.3, chloride 97, bicarbonate 32, BUN 29, creatinine 1.2, glucose 118, calcium 9.1. DISCHARGE MEDICATIONS: Aspirin 81 mg p.o. daily, Lipitor 40 mg p.o. at bedtime, carvedilol 6.25 mg p.o. q.12 hours. Enalapril 5 mg p.o. b.i.d., Lasix 40 mg p.o. daily. Nitroglycerin 0.4 mg sublingual q. 5 minutes as needed for chest pain and omeprazole 20 mg p.o. daily. cc: Gregory Fisher MD
[2019-05-17] MEDS ORDERED: VASOTEC PO SCH (21:00)
[2019-05-18] MEDS ORDERED: LASIX PO SCH (09:00)
--- NOTE | 2019-05-18 19:58 | Extremity Venous Study ---
PROCEDURE NAME: Venous U/S Bilateral Legs - 05/12/2019 PROCEDURE: Bilateral lower extremity venous duplex and color flow imaging study using a GE Vivid E9 ultrasound system with a 9L-D transducer. REFERRING PHYSICIAN: Soniya. 48-year-old male. 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 INDICATIONS: Bilateral lower extremity pain and edema in addition to shortness of breath. Negative D-dimer. Rule out deep venous thrombosis and pulmonary embolus. FINDINGS: The right common femoral vein and its branches, deep and superficial femoral veins were satisfactorily imaged. They had flow through them and were compressible. The right popliteal vein and deep veins below the right knee were all compressible and had flow through them. The superficial veins of the right lower extremity were compressible throughout their length. The left common femoral vein and its branches, deep and superficial femoral veins were also satisfactorily imaged. They had flow through them and were compressible. Left popliteal vein and deep veins of the left knee were all compressible and had flow through them. The superficial veins of the left lower extremity were compressible throughout their length. INTERPRETATION: No evidence of acute deep or superficial venous thrombosis of the bilateral lower extremities. cc: MD Medina Reyes PA
== END 2019-05-17 15:26 | disposition home or self-care (01) | DRG 291 ==
LOC: ED 18:37 → EDIPHOLD 18:37 → OBSVTOIN 23:55 → SUATTDRO 23:55 → EDIPHOLD 05-12 09:29 → 4N 05-12 13:43
PROVIDERS: ATTEND Internal Medicine